=== PATIENT | male | born 1960 | race Caucasian/White ===

== ENCOUNTER → 2016-07-27 | Outpatient (CLI) | payer BC ==
--- NOTE | 2016-07-28 11:03 | CR ---
EXAMINATION: Left knee HISTORY: Gout COMPARISON: None TECHNIQUE: 2 views FINDINGS/IMPRESSION: There is no acute osseous abnormalities, dislocation, or fracture identified. B one mineralization and joint spaces appear normal. No soft tissue swelling or joint effusion. Small enthesophytes along the inferior aspect of the patella.
--- NOTE | 2016-07-28 11:05 | CR ---
EXAMINATION: Right elbow HISTORY: Gout COMPARISON: None TECHNIQUE: 2 views FINDINGS/IMPRESSION: There is no acute osseous abnormality, dislocation, or fracture identified. Bon e mineralization and joint spaces appear normal. No soft tissue swelling or joint effusion. Early os teophyte formation is noted.
== END ==
LOC: MW.CHIM 14:53
PROVIDERS: ATTEND Internal Medicine
DX: M10.9 Gout, unspecified (principal); M1A.9XX0 Chronic gout, unspecified, without tophus (tophi); M25.721 Osteophyte, right elbow
CPT/HCPCS: 36415; 73070-26-RT; 73070-RT; 73560-26-LT; 73560-LT; 84550; 85025; 85652; 86140